=== PATIENT | female | born 2000 | race Caucasian/White ===

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

== ENCOUNTER 2023-08-31 01:49 | Emergency (ER) | payer BC ==
[~2023-08-31] VITALS: Ht 175 cm; Wt 90.7 kg
[~2023-08-31 01:49] MED LIST changes: +HYOS0.1283 SL; +ONDA8TAB13 PO
[2023-08-31 01:58] VITALS: BP 150/105
[2023-08-31] MEDS ORDERED: RX-NAPROXEN (NAPROSYN) 250 MG TAB PPK#4 PO STA (02:03)
[2023-08-31] MEDS ORDERED: RX-AMOXICILLIN 500 MG CAP #3 PPK PO STA (02:03)
[2023-08-31] MEDS ORDERED: LIDO15SO3 MM (02:06)
[2023-08-31] MEDS ORDERED: NAPR500T8 PO (02:06)
[2023-08-31] MEDS ORDERED: AMOX875T2 PO (02:06)
--- NOTE | 2023-08-31 02:06 | ED EENT ---
History of Present Illness General Chief Complaint: Dental Problems/Pain Stated Complaint: TOOTH PX Source: patient History of Present Illness Date Seen by Provider: Aug 31, 2023 Time Seen by Provider: 01:58 Initial Comments PT ARRIVES VIA POV FROM HOME C/O DENTAL PAIN X 1 WEEK PAIN IN RIGHT UPPER MOLAR AREA NO FEVER NO FACIAL SWELLING NO HISTORY OF SIMILAR STATES SHE SAW A DENTIST AT [facility] 1 WEEK AGO FOR THIS PROBLEM, STATES XRAYS WERE DONE, NO MEDICATIONS PRESCRIBED NEXT APPOINTMENT IS IN NOVEMBER NO RELIEF WITH ORAJEL SHE HAS NOT TAKEN ANYTHING ELSE FOR PAIN PCP: NONE Allergies and Home Medications Allergies Coded Allergies: No Known Drug Allergies (Unverified , 05/13/18) Patient Home Medication List Home Medication List Reviewed: Yes Amoxicillin (Amoxicillin) 875 Mg Tablet, 875 MG PO BID Prescribed by: YASMANY VILLARREAL on 08/31/23205 Levonorgestrel-Ethin Estradiol (Aviane-28 Tablet) 1 Each Tablet, (Reported) Entered as Reported by: AMBER CHING on 05/13/182017 Lidocaine HCl (Lidocaine HCl Viscous) 2 % Solution, 1-2 ML MM [id number] Prescribed by: YASMANY VILLARREAL on 08/31/23205 Naproxen (Naproxen) 500 Mg Tablet.dr, 500 MG PO BID Prescribed by: YASMANY VILLARREAL on 08/31/23205 Discontinued Medications Hyoscyamine Sulfate (Levsin-Sl) 0.125 Mg Tab.subl, 1-2 TAB SL Q4H Discontinued Reason: No Longer Taking Prescribed by: YASMANY VILLARREAL on 10/02/192016 Last Action: Discontinued Ondansetron (Ondansetron Odt) 8 Mg Tab.rapdis, 8 MG PO Q6H Discontinued Reason: No Longer Taking Prescribed by: YASMANY VILLARREAL on 10/02/192016 Last Action: Discontinued Prednisone (Prednisone) 10 Mg Tab, (Reported) Discontinued Reason: No Longer Taking Entered as Reported by: AMBER CHING on 05/13/182017 Last Action: Discontinued Review of Systems Review of Systems Constitutional: no symptoms reported Eyes: No Symptoms Reported Ears: No Symptoms Reported Nose: no symptoms reported Mouth: see HPI Throat: no symptoms reported Respiratory: no symptoms reported Cardiovascular: no symptoms reported Skin: no symptoms reported Neurological: No Symptoms Reported Past Umdmwum-Emcbfs-Juuvcd Hx Patient Social History Tobacco Use?: No Substance use?: No Alcohol Use?: No Pt feels they are or have been: No Immunizations Up To Date Tetanus Booster (TDap): Less than 5yrs PED Vaccines UTD: Yes Seasonal Allergies Seasonal Allergies: Yes Past Medical History Surgery/Hospitalization HX: DENIES Surgeries: No Respiratory: No Cardiac: No Neurological: No Genitourinary: No Gastrointestinal: No Musculoskeletal: No Endocrine: No HEENT: No Cancer: No Psychosocial: No Integumentary: No Blood Disorders: No Physical Exam Vital Signs Vital Signs - First Documented 08/31/23 01:58 Temp 36.4 Pulse 77 Resp 14 B/P (MAP) 150/105 (120) Pulse Ox 98 O2 Delivery Room Air Height, Weight, BMI Height: 5'8.00" Weight: 180lbs. oz. 81.713370ie; 29.00 BMI Method:Stated General Appearance: WD/WN, no apparent distress Nose: normal inspection Mouth/Throat: dental tenderness; No mandibular swelling, No maxillary swelling; other (TENDERNESS TO RIGHT UPPER MOLAR AREA, NO SWELLING TO GUMS. NO FACIAL SWELLING, NO TRISMUS. ) Neck: non-tender, full range of motion, supple, normal inspection Cardiovascular: regular rate, rhythm Respiratory: normal breath sounds Neurologic/Psychiatric: seating captain II-XII nml as tested, no motor/sensory deficits, alert, normal mood/affect, oriented x 3 Skin: normal color, warm/dry Progress/Results/Core Measures Results/Orders My Orders Orders - YASMANY VILLARREAL DO Lidocaine 2% Viscous 15 Ml (Xylocaine Vi (08/31/23 02:15) Rx-Amoxicillin Capsule (Rx-Polymox Capsu (08/31/23 02:03) Rx-Naproxen (Rx-Naprosyn) (08/31/23 02:03) Vital Signs/I&O 08/31/23 01:58 Temp 36.4 Pulse 77 Resp 14 B/P (MAP) 150/105 (120) Pulse Ox 98 O2 Delivery Room Air Progress Progress Note : Progress Note DISCUSSED ANTICIPATED COURSE, SYMPTOMATIC TREATMENT, NEED FOR FOLLOW UP WITH DENTIST AND RETURN PRECAUTIONS Departure Impression Primary Impression: Pain, dental Disposition: 01 HOME, SELF-CARE Condition: Stable Departure-Patient Inst. Decision time for Depature: 02:05 Referrals: NO,LOCAL PHYSICIAN (PCP) Primary Care Physician Patient Instructions: Dental Pain ED Add. Discharge Instructions: SOFT FOODS FOLLOW UP WITH DENTIST SOON POSSIBLE--CALL ON SUNDAY TO SCHEDULE AN APPOINTMENT All discharge instructions reviewed with patient and/or family. Voiced understanding. Scripts Naproxen (Naproxen) 500 Mg Tablet.dr 500 MG PO BID, #20 TAB Prov: YASMANY VILLARREAL DO 08/31/23 Lidocaine HCl (Lidocaine HCl Viscous) 2 % Solution 1-2 ML MM [id number], #120 ML Prov: YASMANY VILLARREAL DO 08/31/23 Amoxicillin (Amoxicillin) 875 Mg Tablet 875 MG PO BID, #20 TAB Prov: YASMANY VILLARREAL DO 08/31/23 YASMANY VILLARREAL DO Aug 31, 2023 02:06
[2023-08-31] MEDS ORDERED: LIDOCAINE 2% VISCOUS 15 ML UDC MM ONE (02:15)
== END 2023-08-31 02:14 | disposition home or self-care (01) ==
LOC: EDUNIT# 01:49 → ER 01:54
DX: K08.89 Other specified disorders of teeth and supporting structures (principal)
CPT/HCPCS: 99283